=== PATIENT | female | born 1970 | race Caucasian/White ===

== ENCOUNTER 2016-11-30 13:58 | Emergency (ER) | payer BC | END 2016-11-30 17:50 | disposition home or self-care (01) | LOC: ER1 13:58 | DX: M50.122 Cervical disc disorder at C5-C6 level with radiculopathy (principal) | CPT/HCPCS: 72125; 93005; 99284 ==

== ENCOUNTER 2016-12-14 17:53 | Emergency (ER) | payer BC ==
[2016-12-14 20:02] LABS: HEMOGLOBIN 14.9 gm/dl (12.3-15.3); RED BLOOD COUNT 5.22 M/UL (4.00-5.10); WHITE BLOOD COUNT 13.7 K/UL (4.5-11.0)
[2016-12-14 20:18] LABS: BUN/CREATININE RATIO 18 (0-10)
== END 2016-12-14 20:50 | disposition home or self-care (01) ==
LOC: ER1 17:53
PROVIDERS: Physician Assistant Medical
DX: J40 Bronchitis, not specified as acute or chronic (principal)
CPT/HCPCS: 36415; 71020; 80053; 85025; 94664; 99283

== ENCOUNTER 2021-01-27 19:05 | Emergency (ER) | payer OTHER ==
[~2021-01-27 19:05] MED LIST: ALLEGRA ALLERGY60 MG PO; AUGMENTIN 875-1 EACH PO; FLONASE 0.05% N16 GM; IBUPROFEN800 MG PO; PREDNISONE 50 M50 MG PO; PREDNISONE20 MG PO; SINGULAIR10 MG PO; TESSALON PERLE100 MG PO; ZITHROMAX1 GM PO
[2021-01-27 22:44] LABS: HEMOGLOBIN 14.5 gm/dl (12.3-15.3); RED BLOOD COUNT 4.96 M/UL (4.00-5.10); WHITE BLOOD COUNT 8.6 K/UL (4.5-11.0)
[2021-01-27 23:03] LABS: BUN/CREATININE RATIO 16 (0-10)
== END 2021-01-28 00:55 | disposition home or self-care (01) ==
LOC: ER1 19:05
PROVIDERS: Family Medicine
DX: R20.2 Paresthesia of skin (principal); R42 Dizziness and giddiness
CPT/HCPCS: 70450; 80053; 82550; 82553; 83874; 84484; 85025; 93005; 99284

== ENCOUNTER 2022-03-20 22:31 | Emergency (ER) | payer OTHER ==
[2022-03-20 23:25] LABS: HEMOGLOBIN 14.7 gm/dl (12.3-15.3); RED BLOOD COUNT 5.05 M/UL (4.00-5.10); WHITE BLOOD COUNT 9.3 K/UL (4.5-11.0)
[2022-03-20 23:35] LABS: BUN/CREATININE RATIO 17 (0-10)
[2022-03-21] MEDS ORDERED: POLYTRIM EYE DR10 ML OU ×2 (02:02→02:18)
[2022-03-21] MEDS ORDERED: IBU600 MG PO (02:02)
== END 2022-03-21 02:15 | disposition home or self-care (01) ==
LOC: ER1 22:31
PROVIDERS: Physician Assistant
DX: S20.211A Contusion of right front wall of thorax, initial encounter (principal); S50.11XA Contusion of right forearm, initial encounter; V49.9XXA Car occupant (driver) (passenger) injured in unspecified traffic accident, initial encounter
CPT/HCPCS: 71101; 80053; 81001; 85025; 99284; Q9967

== ENCOUNTER 2022-03-23 18:51 | Emergency (ER) | payer OTHER ==
[~2022-03-23 18:51] MED LIST changes: +IBU600 MG PO; +POLYTRIM EYE DR10 ML OU
[2022-03-23] MEDS ORDERED: HYDROCODON-ACE1 EAC4 PO (19:19)
[2022-03-23] MEDS ORDERED: ZOFRAN ODT 4 MG4 MG PO (19:41)
== END 2022-03-23 19:42 | disposition home or self-care (01) ==
LOC: ER1 18:51
DX: S22.41XA Multiple fractures of ribs, right side, initial encounter for closed fracture (principal); E11.9 Type 2 diabetes mellitus without complications; V49.9XXA Car occupant (driver) (passenger) injured in unspecified traffic accident, initial encounter
CPT/HCPCS: 99282